=== PATIENT | male | born 1970 | race Caucasian/White ===

== ENCOUNTER 2022-05-27 18:53 | Observation (INO) | payer OTHER, SELFPAY ==
[2022-05-27] VITALS (11 sets, daily range): BP systolic 163–190; BP diastolic 93–125; PULSE 68–85; RESP 11–22; TEMP 37.3; O2SAT 96–99
--- NOTE | ~2022-05-27 | US_ITS ---
US right upper quadrant DATE: 05/29/2022 13:58 INDICATION: Elevated liver function tests TECHNIQUE: Real-time imaging and Doppler analysis of the right upper quadrant COMPARISON: None FINDINGS: The pancreas is partially obscured by bowel gas. No hepatic space-occupying mass lesion is detected. Normal hepatopedal portal venous flow direction. No gallstones or pericholecystic fluid are detected. The gallbladder is not very distended which may account for mild prominence of the wall which measures approximately 2.7 mm maximal dimension. Negati ve sonographic Weaver's sign. The common bile duct measures 4 mm, within normal range. IMPRESSION: Limited distention of the gallbladder, no visualized gallstones, gallbladder wall upper l imits normal; negative sonographic Weaver's sign. The pancreas is not well demonstrated Reviewed, dictated and finalized at [facility] Reviewed, dictated and finalized at [facility] [employer] HANDL[employer] HELPER IMPRESSION: Limited distention of the gallbladder, no visualized gallstones, ga llbladder wall upper limits normal; negative sonographic Weaver's sign. The pancreas is not well demonstrated
--- NOTE | ~2022-05-27 | XR_ITS ---
EXAMINATION: XR chest 1V portable DATE: 05/27/2022 22:05 INDICATION: Shortness of breath. TECHNIQUE: A single frontal view of the chest was obtained. COMPARISON: None. FINDINGS: The chest demonstrates clear lungs without pneumonia, pleural effusion, or pneumothorax. Th e heart size is normal. IMPRESSION: 1. No acute cardiopulmonary disease. Reviewed, dictated and finalized at [facility]
--- NOTE | 2022-05-27 21:45 | ECG_ITS ---
Measurements Intervals [place] Rate: 67 P: 59 ND: 155 QRS: -9 QRSD: 97 T: 43 QT: 404 QTc: 429 Interpretive Statements SINUS RHYTHM NORMAL ECG NO PREVIOUS ECG AVAILABLE FOR COMPARISON Electronically Signed On 05-28-2022 6:47:10 GEOMETRY TEACHER by Pk Armas D.O.
--- NOTE | 2022-05-27 21:47 | ED.ALCOHOL ---
HPI - Alcohol General Chief Complaint: Alcohol <Karlie Rodriguez MD - Last Filed: 05/27/22 22:42> Stated Complaint: alcohol withdrawal <Karlie Rodriguez MD - Last Filed: 05/27/22 22:42> Time Seen by Provider: 05/27/22 21:38 <Karlie Rodriguez MD - Last Filed: 05/27/22 22:42> Source: patient and RN notes reviewed <Karlie Rodriguez MD - Last Filed: 05/27/22 22:42> Mode of arrival: wheelchair <Karlie Rodriguez MD - Last Filed: 05/27/22 22:42> Limitations: no limitations <Karlie Rodriguez MD - Last Filed: 05/27/22 22:42> History of Present Illness HPI narrative: This is a 51 year old male with history of alcohol abuse who presents for evaluation of alcohol withdrawal. Patient states he has not had any alcohol in 24 hours. He has been having weakness, nausea and vomiting since yesterday. He denies associated abdominal pain or diarrhea. He reports temperature of 99 F today. He also states today he is having shortness of breath when he is sleeping. He states when he falls asleep, he will wake up gasping for air. He denies chest pain. He almost fell today and he states he fell yestserday because he felt like his legs gave out. He went to alcohol rehab 2 months ago and he immediately went back to drinking 2 months ago as well. <Karlie Rodriguez MD - Last Filed: 05/27/22 22:42> Related Data Allergies/Adverse Reactions: Allergies Allergy/AdvReac Type Severity Reaction Status Date / Time No Known Allergies Allergy Verified 05/27/22 22:25 <Karlie Rodriguez MD - Last Filed: 05/27/22 22:42> Review of Systems Review of Systems: All systems reviewed & are unremarkable except as noted in HPI and below <Karlie Rodriguez MD - Last Filed: 05/27/22 22:42> Constitutional: Constitutional: Denies chills, Reports fatigue, Reports fever(s) and Reports weakness <Karlie Rodriguez MD - Last Filed: 05/27/22 22:42> ENT: Denies nasal congestion and Denies sore throat <Karlie Rodriguez MD - Last Filed: 05/27/22 22:42> Cardiovascular: Cardiovascular: Denies chest pain and Denies radiating jaw, neck or arm pain <Karlie Rodriguez MD - Last Filed: 05/27/22 22:42> Respiratory: Respiratory: Reports cough, Reports dyspnea and Denies wheezing <Karlie Rodriguez MD - Last Filed: 05/27/22 22:42> Gastrointestinal: Gastrointestinal: Denies abdominal pain, Denies diarrhea, Reports nausea and Reports vomiting <Karlie Rodriguez MD - Last Filed: 05/27/22 22:42> Neurologic: Reports headache(s) <Karlie Rodriguez MD - Last Filed: 05/27/22 22:42> Psychiatric: Psychiatric: Reports anxiety <Karlie Rodriguez MD - Last Filed: 05/27/22 22:42> PMFSH Past Medical History Medical History: Medical History (Updated 05/27/22 @ 22:42 by Karlie Rodriguez MD) Alcohol abuse Alcohol withdrawal <Karlie Rodriguez MD - Last Filed: 05/27/22 22:42> Surgical History Surgical History: Surgical History (Updated 05/27/22 @ 21:52 by Karlie Rodriguez MD) No pertinent past surgical history <Karlie Rodriguez MD - Last Filed: 05/27/22 22:42> Social History Social History: Social History (Updated 05/27/22 @ 21:52 by Karlie Rodriguez MD) Alcohol intake: current <Karlie Rodriguez MD - Last Filed: 05/27/22 22:42> Exam Const: General: no acute distress and alert <Karlie Rodriguez MD - Last Filed: 05/27/22 22:42> Orientation/consciousness: patient oriented x3 <Karlie Rodriguez MD - Last Filed: 05/27/22 22:42> HENMT: Head: normal to inspection <Karlie Rodriguez MD - Last Filed: 05/27/22 22:42> Ears: external ears normal <Karlie Rodriguez MD - Last Filed: 05/27/22 22:42> Mouth: Yes Normal oral and palatal mucosa present <Karlie Rodriguez MD - Last Filed: 05/27/22 22:42> Eyes: EOM: EOMs intact bilaterally <Karlie Rodriguez MD - Last Filed: 05/27/22 22:42> Neck: Neck: normal visual inspection <Karlie Rodriguez MD - Last Filed: 05/27/22 22:42> Chest: Chest p
[2022-05-27 22:10] LABS: Appearance Urine Clear (Clear); Bilirubin Urine Negative (Negative); Blood Urine Negative (Negative); Color Urine Yellow (Yellow); Glucose Urine UA Negative (Negative); Ketones Urine Negative (Negative); Leukocyte Esterase Ur Negative LEU/UL (Negative); Nitrate Urine Negative (Negative); Protein Urine Negative (Negative); Specific Grav Ur 1.015 (1.001-1.035); Urobilinogen Urine 0.2 mg/dL (<2.0); pH Urine 7.5 (5.0-9.0)
[2022-05-27 22:14] LABS: Add Urine Microscopic? NO; Mucus Urine Rare /lpf; RBC Urine 0-2 /hpf (0-2); WBC Urine 0-3 /hpf
[2022-05-27] MEDS: SODIUM CHLORIDE 0.9% IV 1,000 ML 999 ML IV CONT (22:26)
[2022-05-27] MEDS: LORazepam INJ (*CRX) 2 MG/ML VIAL IV PUSH ×2 (22:27→23:18)
[2022-05-27 22:38] LABS: Eosinophils Absolute Auto 0.1 K/mm3 (0-0.3); Eosinophils Percent Auto 1.9 % (0-4.4); Hematocrit 38.8 % (42.0-52.0); Immature Granulocyte Absolute 0.01 K/mm3 (0.00-0.031); Immature Granulocyte Percent A 0.2 % (0-0.5); Lymphocytes Percent Auto 28.6 % (18.3-44.2); Mean Corpuscular HGB Conc 33.5 g/dl (32-36); Mean Corpuscular Hemoglobin 33.7 pg (26-34); Mean Corpuscular Volume 100.5 fl (80-100); Mean Platelet Volume 10.5 fl (7.4-10.4); Monocytes Absolute Auto 0.2 K/mm3 (0.1-0.6); Monocytes Percent Auto 5.7 % (2.6-8.5); Neutrophils Absolute Auto 2.6 K/mm3 (1.3-6.7); Neutrophils Percent Auto 62.6 % (45.5-73.1); Platelet Count Result 91 k/mm3 (150-375); Red Blood Count 3.86 M/mm3 (4.6-6.20); Red Cell Distribution Width 12.6 % (11.5-14.5); White Blood Count 4.2 K/mm3 (4.5-10.0)
[2022-05-27 22:44] LABS: Amphetamine Screen Urine Negative (Negative); Barbiturate Screen Urine Negative (Negative); Benzodiazepines Screen Urine Positive (Negative); Cannabinoid Screen Urine Negative (Negative); Cocaine Screen Urine Negative (Negative); Methadone Screen Urine Negative (Negative); Opiate Screen Urine Negative (Negative); Phencyclidine Screen Urine Negative (Negative)
[2022-05-27 22:46] LABS: Prothrombin Time 12.9 Seconds (11.1-14.7)
[2022-05-27 22:47] LABS: Creatine Kinase 153 U/L (55-170); Lipase 61 U/L (23-300); Magnesium 1.6 mg/dL (1.6-2.3); Partial Thromboplastin Time 30.8 SECONDS (22.3-36.8); SARS-CoV-2 RNA PCR Negative
[2022-05-27 22:49] LABS: Alanine Aminotransferase 77 U/L (6-50); Albumin Level 4.8 g/dL (3.5-5.1); Alkaline Phosphatase 70 U/L (38-126); Anion Gap 12 mmol/L (8-16); Aspartate Amino Transferase 69 U/L (17-59); Bilirubin,Total 0.9 mg/dL (0.2-1.3); Blood Urea Nitrogen 11 mg/dL (9-20); Calcium 9.5 mg/dL (8.4-10.2); Carbon Dioxide 31 mmol/L (22-30); Chloride 95 mmol/L (98-107); Estimated CRCL calculation 116 ml/min; Estimated Glomerular Filt Rate > 60; Ethanol < 10 mg/dL (<10); Glucose 93 mg/dL (65-110); Lactic Acid Reflex 0.9 mmol/L (0.7-2.0); Potassium 3.5 mmol/L (3.4-5.0); Sodium 138 mmol/L (137-145)
--- NOTE | 2022-05-27 23:25 | PC.NURSE ---
Patient report given to CAROL Mccoy. All questions answered and care of patient transferred.
[2022-05-28] VITALS (31 sets, daily range): BP systolic 134–180; BP diastolic 81–117; PULSE 72–91; RESP 12–24; TEMP 36.9–37.4; O2SAT 93–99; BMI 24.5
[2022-05-28] MEDS: THIAMINE HCL 200 MG/2 ML VIAL 100 MG IV PUSH (01:18)
[2022-05-28] MEDS: ONDANSETRON INJ 4 MG/2 ML VIAL IV PUSH (01:18)
[2022-05-28] MEDS: SODIUM CHLORIDE 0.9% IV 1,000 ML 999 ML IV CONT (01:18)
[2022-05-28] MEDS: chlordiazePOXIDE (*CRX) 25 MG CAPSULE 50 MG PO ×5 (01:52→23:15)
--- NOTE | 2022-05-28 03:30 | ADMGEN ---
This patient, Matthew Hillman, was admitted to [facility] Surg Room 331-01. Patient/family oriented to hospital policies and general routines including ID bracelet, bed and alarms, visiting hours, pain management, procedures, bathroom and other care routines, personal items, smoking policy, room service/diet, and visiting hours. Information on how to activate the Rapid Response Team has been discussed. Patient/Family are encouraged to report perceived risks to care and to ask questions if they do not understand what they are told or what they should do.
--- NOTE | 2022-05-28 05:26 | PM.IMHP ---
H&P: HPI History of Present Illness Date/Time: 05/28/22 05:26 Chief Complaint: Alcohol withdrawal Narrative: 51-year-old male with past medical history of chronic alcohol abuse who presented to the ER with symptoms of alcohol withdrawal. The patient drinks at least a 5th of vodka daily in addition to several beers a day. His last drink was at 15:00 on the . His CIWA score in the ER was 9. He has been having generalized weakness, nausea and vomiting since the . He almost fell yesterday due to his legs being weak. He was last in alcohol rehab center 2 months ago in as soon as he got out of rehab he immediately went back to drinking. He evidently was seeking help for his alcohol withdrawal and was prescribed a script for Librium 25 mg q.i.d. and Zofran p.r.n. as outpatient. He was supposed to go to an alcohol rehab center on the morning of the . In the ER he received 2 doses of Ativan with improvement in his symptoms. He has had history of prior alcohol withdrawal seizures approximately 2 years ago. about half an hour prior to my arrival to the room the patient CIWA score was Seventeen. He received 2 mg of Ativan and is now sleeping soundly and is difficult to arouse. He has no evidence of tremors diaphoresis or evidence of withdrawal at this moment. He had a temperature of 99? on arrival to the ER. He he denies any cough or congestion. He has been having some shortness of breath when he is laying down. his COVID swab was negative in the ER. His chest x-ray was normal. Review of Systems Review of Systems: Unattainable due to sedation. [facility] Past Medical History Medical History (Updated 05/28/22 @ 06:07 by Amee Cueto DO) Alcohol abuse Alcohol withdrawal Surgical History Surgical History (Updated 05/27/22 @ 21:52 by Karlie Rodriguez MD) No pertinent past surgical history Family History Family History (Updated 05/28/22 @ 06:32 by Amee Cueto DO) Other Unknown family medical history Social History Social History (Updated 05/28/22 @ 06:31 by Amee Cueto DO) Social History: The patient drinks up to a 5th of alcohol a day plus several cans of beer a day. It is unknown if the patient is ever smoked. It is unknown if he uses drugs. Smoking status: Unknown if ever smoked Tobacco type: cigarettes Additional smoking assessment comments: mother states pt has smoked since he was a teenager Alcohol intake: current Drinks per week: 30 Substance use: current Spiritual care concerns: No Meds Home Medications and Allergies Home Medications Medication Instructions Recorded Confirmed Type chlordiazepoxide HCl 25 mg capsule 25 mg PO QID 05/28/22 05/28/22 History ondansetron HCl 4 mg tablet 4 mg PO BID 05/28/22 05/28/22 History Allergies Allergy/AdvReac Type Severity Reaction Status Date / Time No Known Allergies Allergy Verified 05/27/22 22:25 Vital Signs Vital Signs - 24 hr 05/27/22 19:26 05/27/22 22:59 05/27/22 23:00 Temperature 99.1 F Pulse Rate 70 73 68 Respiratory Rate 18 11 L 19 Blood Pressure 163/93 H 171/97 H Pulse Oximetry 99 Oxygen Delivery Room Air 05/27/22 23:12 05/27/22 23:15 05/27/22 23:17 Temperature Pulse Rate 76 81 73 Respiratory Rate 16 14 11 L Blood Pressure 190/115 H 183/125 H Pulse Oximetry 97 97 97 Oxygen Delivery 05/27/22 23:18 05/27/22 23:38 05/27/22 23:45 Temperature Pulse Rate 77 85 69 Respiratory Rate 15 22 H 20 Blood Pressure Pulse Oximetry 96 98 Oxygen Delivery 05/27/22 23:46 05/27/22 23:47 05/28/22 00:00 Temperature Pulse Rate 74 74 78 Respiratory Rate 19 17 19 Blood Pressure 176/107 H Pulse Oximetry 98 97 Oxygen Delivery 05/28/22 00:01 05/28/22 00:15 05/28/22 00:16 Temperature Pulse Rate 80 73 85 Respiratory Rate 15 12 24 H Blood Pressure 152/94 H 160/94 H Pulse Oximetry Oxygen Delivery 05/28/22 00:17 05/28/22 00:30
[2022-05-28] MEDS: LORazepam INJ (*CRX) 2 MG/ML VIAL IV PUSH (05:56)
[2022-05-28] MEDS: THIAMINE HCL 100 MG TABLET PO (08:13)
[2022-05-28] MEDS: FOLIC ACID 1 MG TABLET PO (08:13)
[2022-05-28 08:40] LABS: Hematocrit 38.9 % (42.0-52.0); Hemoglobin 13.2 g/dL (14.0-18.0); Immature Platelet Fraction Pct 8.2 % (0.9-11.2); Mean Corpuscular HGB Conc 33.9 g/dl (32-36); Mean Corpuscular Hemoglobin 33.8 pg (26-34); Mean Corpuscular Volume 99.5 fl (80-100); Mean Platelet Volume 10.4 fl (7.4-10.4); Platelet Count Result 86 k/mm3 (150-375); Red Blood Count 3.91 M/mm3 (4.6-6.20); Red Cell Distribution Width 12.2 % (11.5-14.5)
[2022-05-28 08:47] LABS: Alanine Aminotransferase 71 U/L (6-50); Albumin Level 4.7 g/dL (3.5-5.1); Alkaline Phosphatase 71 U/L (38-126); Anion Gap 11 mmol/L (8-16); Aspartate Amino Transferase 61 U/L (17-59); Bilirubin,Total 1.2 mg/dL (0.2-1.3); Blood Urea Nitrogen 10 mg/dL (9-20); Carbon Dioxide 27 mmol/L (22-30); Chloride 98 mmol/L (98-107); Estimated CRCL calculation 131 ml/min; Estimated Glomerular Filt Rate > 60; Glucose 101 mg/dL (65-110); Magnesium 1.5 mg/dL (1.6-2.3); Phosphorus 3.9 mg/dL (2.5-4.5); Potassium 3.7 mmol/L (3.4-5.0); Sodium 136 mmol/L (137-145)
[2022-05-28 10:26] LABS: Folic Acid 16.1 ng/mL (2.76->20)
--- NOTE | 2022-05-28 11:54 | PM.IMPN ---
Progress Note: A&P Assessment and Plan (1) Alcohol withdrawal syndrome: Code(s): F10.939 - Alcohol use, unspecified with withdrawal, unspecified Status: Acute Assessment and Plan: patient has been admitted to medical floor. Thiamine and folate have been started. He has been started on scheduled Librium. Lorazepam IV is available as needed for signs or symptoms of worsening withdrawal. B12 folate level normal. The patient already has a bed available and alcohol rehab center on Monday morning. Hopefully will get the patient medically stabilized so that he can go to the appointment for rehab placement. Okay to stop tele. (2) Pancytopenia: Code(s): D61.818 - Other pancytopenia Status: Acute Assessment and Plan: White count normal now. Platelet count has dropped to 86 K probably related to the toxic effects of alcohol. No clinical evidence of cirrhosis and no splenomegaly on exam. hemoglobin is only mildly decreased and stable. Follow. (3) Elevated liver transaminase level: Code(s): R74.01 - Elevation of levels of liver transaminase levels Status: Acute Assessment and Plan: AST and ALT mildly elevated on admission. Likely due to chronic alcoholic hepatitis. Repeat levels trending downward. (4) Alcohol abuse: Code(s): F10.10 - Alcohol abuse, uncomplicated Status: Acute Assessment and Plan: patient was educated about the benefits of stain from alcohol use. He lives at home with his 9-year-old son who is currently staying with grandparents. Subjective Date/time seen: 05/28/22 11:54 Interval history: 51yo male with hx of alcoholism here for nausea and found to have alcohol withdrawal. Patient slept poorly. No chest pain. Shortness of breath has resolved. No nausea or vomiting. No tremors. He feels very weak. He has a history of seizures in the past related to alcohol withdrawal. Exam Narrative: AF 99.4 172/88 76 18 95% ra Gen - NARD lying semi-recumbent in bed Chest - CTA bilaterally, nml RR CV - RRR S1/S2. Tele showing no significant dysrhythmias Abd - Soft, NT/ND, Positive BS. No hepatosplenomegaly Ext - No pedal edema Psych - alert, slow to respond, weak and needs assistance sittinig up in bed. Skin - Warm and dry. no diaphroesis Objective Data Vital Signs Vital Signs: Vital Signs - 24 hr 05/27/22 19:26 05/27/22 22:59 05/27/22 23:00 Temperature 99.1 F Pulse Rate 70 73 68 Respiratory Rate 18 11 L 19 Blood Pressure 163/93 H 171/97 H Pulse Oximetry 99 Oxygen Delivery Room Air 05/27/22 23:12 05/27/22 23:15 05/27/22 23:17 Temperature Pulse Rate 76 81 73 Respiratory Rate 16 14 11 L Blood Pressure 190/115 H 183/125 H Pulse Oximetry 97 97 97 Oxygen Delivery 05/27/22 23:18 05/27/22 23:38 05/27/22 23:45 Temperature Pulse Rate 77 85 69 Respiratory Rate 15 22 H 20 Blood Pressure Pulse Oximetry 96 98 Oxygen Delivery 05/27/22 23:46 05/27/22 23:47 05/28/22 00:00 Temperature Pulse Rate 74 74 78 Respiratory Rate 19 17 19 Blood Pressure 176/107 H Pulse Oximetry 98 97 Oxygen Delivery 05/28/22 00:01 05/28/22 00:15 05/28/22 00:16 Temperature Pulse Rate 80 73 85 Respiratory Rate 15 12 24 H Blood Pressure 152/94 H 160/94 H Pulse Oximetry Oxygen Delivery 05/28/22 00:17 05/28/22 00:30 05/28/22 00:31 Temperature Pulse Rate 91 76 82 Respiratory Rate 21 H 23 H 16 Blood Pressure 172/98 H Pulse Oximetry 99 96 Oxygen Delivery 05/28/22 00:45 05/28/22 01:00 05/28/22 01:15 Temperature Pulse Rate 76 76 90 Respiratory Rate 14 17 19 Blood Pressure Pulse Oximetry 96 97 95 Oxygen Delivery 05/28/22 01:16 05/28/22 01:17 05/28/22 01:30 Temperature Pulse Rate 89 84 86 Respiratory Rate 19 14 17 Blood Pressure 176/98 H Pulse Oximetry 96 Oxygen Delivery 05/28/22 01:32 05/28/22 01:45 05/28/22 01:46 Temperature
[2022-05-28] MEDS: MAGNESIUM OXIDE 400 MG TABLET PO (12:33)
[2022-05-28] MEDS: LORazepam INJ (*CRX) 2 MG/ML VIAL 1 MG IV PUSH ×3 (12:41→23:15)
[2022-05-28] MEDS: hydrALAZINE HCL 20 MG/ML VIAL 10 MG IV PUSH (16:37)
[2022-05-29 04:50] VITALS: BP 150/103; PULSE 91; RESP 18; TEMP 36.8; O2SAT 99
[2022-05-29] MEDS: chlordiazePOXIDE (*CRX) 25 MG CAPSULE 50 MG PO ×4 (05:59→23:42)
[2022-05-29 06:56] LABS: Hematocrit 44.3 % (42.0-52.0); Hemoglobin 14.9 g/dL (14.0-18.0); Immature Platelet Fraction Pct 10.1 % (0.9-11.2); Mean Corpuscular HGB Conc 33.6 g/dl (32-36); Mean Corpuscular Hemoglobin 33.3 pg (26-34); Mean Corpuscular Volume 99.1 fl (80-100); Mean Platelet Volume 10.8 fl (7.4-10.4); Platelet Count Result 91 k/mm3 (150-375); Red Blood Count 4.47 M/mm3 (4.6-6.20); Red Cell Distribution Width 12.3 % (11.5-14.5); White Blood Count 4.6 K/mm3 (4.5-10.0)
[2022-05-29 07:03] LABS: Alanine Aminotransferase 213 U/L (6-50); Albumin Level 4.7 g/dL (3.5-5.1); Alkaline Phosphatase 71 U/L (38-126); Anion Gap 8 mmol/L (8-16); Aspartate Amino Transferase 216 U/L (17-59); Bilirubin,Total 1.1 mg/dL (0.2-1.3); Blood Urea Nitrogen 12 mg/dL (9-20); Calcium 9.7 mg/dL (8.4-10.2); Carbon Dioxide 28 mmol/L (22-30); Chloride 98 mmol/L (98-107); Estimated CRCL calculation 131 ml/min; Estimated Glomerular Filt Rate > 60; Glucose 115 mg/dL (65-110); Magnesium 1.9 mg/dL (1.6-2.3); Potassium 3.7 mmol/L (3.4-5.0); Sodium 134 mmol/L (137-145)
[2022-05-29] MEDS: THIAMINE HCL 100 MG TABLET PO (08:52)
[2022-05-29] MEDS: FOLIC ACID 1 MG TABLET PO (08:53)
[2022-05-29] MEDS: MAGNESIUM OXIDE 400 MG TABLET PO (08:53)
[2022-05-29] MEDS: LORazepam INJ (*CRX) 2 MG/ML VIAL 1 MG IV PUSH ×4 (11:37→23:42)
--- NOTE | 2022-05-29 11:39 | PM.IMPN ---
Progress Note: A&P Assessment and Plan (1) Alcohol withdrawal syndrome: Code(s): F10.939 - Alcohol use, unspecified with withdrawal, unspecified Status: Acute Assessment and Plan: Patient has been admitted to medical floor. CIWA score trending down (was 1 this morning). Continue thiamine and folate. Continue scheduled Librium. Lorazepam IV is available as needed for signs or symptoms of worsening withdrawal. B12 folate level normal. The patient already has a bed available at an alcohol rehab center but not able to go today. Start PT/OT. SCDs since unable to get out of bed. (2) Pancytopenia: Code(s): D61.818 - Other pancytopenia Status: Acute Assessment and Plan: White count remaining normal. Platelet count dropped to 86 K probably related to the toxic effects of alcohol. No clinical evidence of cirrhosis and no splenomegaly on exam. Plt count improved to 91K. Hemoglobin normal now as well. Follow. (3) Elevated liver transaminase level: Code(s): R74.01 - Elevation of levels of liver transaminase levels Status: Acute Assessment and Plan: AST and ALT mildly elevated on admission but now up to 216 and 213 respectfully. [place] likely due to chronic alcoholic hepatitis. Will check RUQ. (4) Alcohol abuse: Code(s): F10.10 - Alcohol abuse, uncomplicated Status: Acute Assessment and Plan: Patient was educated about the benefits of abstaining from alcohol use. He lives at home with his 9-year-old son who is currently staying with grandparents. Subjective Date/time seen: 05/29/22 11:39 Interval history: 51yo male with hx of alcoholism here for nausea and found to have alcohol withdrawal. Patient slept okay. No CP or SOB but feels SOB right before he falls asleep. He feels his tremors are worse. He cant stand due to tremors. He is not wanting to go to rehab. Exam Narrative: AF 98.2 150/103 91 18 99% ra Gen - NARD lying flat in bed Chest - clear anteriorly and in flanks CV - RRR S1/S2 Abd - Soft, NT, +BS Ext - No pedal edema Psych - alert, mildly garbled speech, more animated. Skin - Warm and dry. not diaphoretic Objective Data Vital Signs Vital Signs: Vital Signs - 24 hr 05/28/22 13:45 11/12/22 13:50 05/28/22 14:10 Temperature 99.4 F Pulse Rate 78 Respiratory Rate 16 Blood Pressure 170/117 H 163/108 H 166/106 H Pulse Oximetry 99 Oxygen Delivery 05/28/22 17:43 05/28/22 20:30 05/28/22 20:00 Temperature 98.4 F Pulse Rate 76 Respiratory Rate 18 Blood Pressure 180/98 H 165/82 H Pulse Oximetry 97 Oxygen Delivery Room Air 05/29/22 04:50 05/29/22 08:50 Temperature 98.2 F Pulse Rate 91 Respiratory Rate 18 Blood Pressure 150/103 H Pulse Oximetry 99 Oxygen Delivery Room Air Intake/Output Intake/Output: Intake & Output 05/26/22 05/27/22 05/28/22 05/29/22 23:59 23:59 23:59 23:59 Intake Total 1000 1010 240 Output Total 2700 1150 Balance 1000 -1690 -910 Meds/Results Medications: Active Medications Generic Name Dose Route Start Last Admin Trade Name Freq PRN Reason Stop Dose Admin Chlordiazepoxide HCl 50 mg 05/28/22 06:00 05/29/22 11:18 Chlordiazepoxide (*Crx) 25 Mg Capsule PO 50 mg Q6HR ISAIAS Administration Folic Acid 1 mg 05/28/22 09:00 05/29/22 08:53 Folic Acid 1 Mg Tablet PO 1 mg DAILY ISAIAS Administration Hydralazine HCl 10 mg 05/28/22 16:07 05/28/22 16:37 Hydralazine Hcl 20 Mg/Ml Vial IV PUSH 10 mg Q8H PRN Administration Blood Pressure - High Lorazepam 1 mg 05/28/22 06:31 05/28/22 23:15 Lorazepam Inj (*Crx) 2 Mg/Ml Vial IV PUSH 1 mg Q2H PRN Administration CIWA score Greater than 8 Magnesium Oxide 400 mg 05/28/22 12:05 05/29/22 08:53 Magnesium Oxide 400 Mg Tablet PO 400 mg DAILY ISAIAS Administration Ondansetron HCl 4 mg 05/28/22 00:46 05/28/22 01:18 Ondansetron Inj 4 Mg/2 Ml Vial IV PUSH 4 mg
[2022-05-29 14:00] VITALS: BP 127/102; PULSE 88; RESP 16; TEMP 36.7; O2SAT 99
[2022-05-29 21:53] VITALS: BP 127/83; PULSE 101; RESP 20; TEMP 36.6; O2SAT 100
[2022-05-30] MEDS: chlordiazePOXIDE (*CRX) 25 MG CAPSULE 50 MG PO ×2 (05:21→12:09)
[2022-05-30 05:44] VITALS: BP 139/97; PULSE 63; RESP 20; TEMP 36.4; O2SAT 100
[2022-05-30 06:23] LABS: Basophils Percent Auto 0.8 % (0.2-1.2); Eosinophils Absolute Auto 0.2 K/mm3 (0-0.3); Hemoglobin 14.1 g/dL (14.0-18.0); Immature Granulocyte Absolute 0.01 K/mm3 (0.00-0.031); Immature Granulocyte Percent A 0.2 % (0-0.5); Immature Platelet Fraction Pct 10.8 % (0.9-11.2); Lymphocytes Absolute Auto 1.57 K/mm3 (0.9-3.2); Lymphocytes Percent Auto 32.7 % (18.3-44.2); Mean Corpuscular HGB Conc 33.6 g/dl (32-36); Mean Corpuscular Hemoglobin 33.6 pg (26-34); Monocytes Absolute Auto 0.4 K/mm3 (0.1-0.6); Neutrophils Absolute Auto 2.5 K/mm3 (1.3-6.7); Neutrophils Percent Auto 52.3 % (45.5-73.1); Platelet Count Result 104 k/mm3 (150-375); Red Cell Distribution Width 12.3 % (11.5-14.5); White Blood Count 4.8 K/mm3 (4.5-10.0)
[2022-05-30 06:39] LABS: Alanine Aminotransferase 201 U/L (6-50); Albumin Level 4.5 g/dL (3.5-5.1); Alkaline Phosphatase 66 U/L (38-126); Anion Gap 10 mmol/L (8-16); Aspartate Amino Transferase 138 U/L (17-59); Bilirubin,Total 0.8 mg/dL (0.2-1.3); Blood Urea Nitrogen 14 mg/dL (9-20); Calcium 9.4 mg/dL (8.4-10.2); Carbon Dioxide 27 mmol/L (22-30); Chloride 100 mmol/L (98-107); Estimated CRCL calculation 116 ml/min; Estimated Glomerular Filt Rate > 60; Glucose 110 mg/dL (65-110); Potassium 3.8 mmol/L (3.4-5.0); Sodium 137 mmol/L (137-145)
[2022-05-30] MEDS: MAGNESIUM OXIDE 400 MG TABLET PO (08:23)
[2022-05-30] MEDS: THIAMINE HCL 100 MG TABLET PO (08:23)
[2022-05-30] MEDS: FOLIC ACID 1 MG TABLET PO (08:23)
--- NOTE | 2022-05-30 12:40 | PM.IMPN ---
Progress Note: A&P Assessment and Plan (1) Alcohol withdrawal syndrome: Code(s): F10.939 - Alcohol use, unspecified with withdrawal, unspecified Status: Acute Assessment and Plan: Patient has been admitted to medical floor. CIWA score trending down overall. Continue thiamine and folate. B12 and folate level normal. The patient already has a bed available at an alcohol rehab center but not able to go yesterday. Walking better. Continue PT/OT. SCDs since unable to get out of bed. Continue scheduled Librium but decrease dose. Lorazepam IV is available as needed for signs or symptoms of worsening withdrawal. (2) Pancytopenia: Code(s): D61.818 - Other pancytopenia Status: Acute Assessment and Plan: White count remaining normal. Platelet count dropped to 86 K probably related to the toxic effects of alcohol. No clinical evidence of cirrhosis and no splenomegaly on exam. Plt count improved to 104K. Hemoglobin normal now as well. Follow. (3) Elevated liver transaminase level: Code(s): R74.01 - Elevation of levels of liver transaminase levels Status: Acute Assessment and Plan: AST and ALT mildly elevated on admission but climbed to 216 and 213 respectfully. [place] likely due to chronic alcoholic hepatitis. RUQ okay. Add Hepatitis panel. Levels trending down (4) Alcohol abuse: Code(s): F10.10 - Alcohol abuse, uncomplicated Status: Acute Assessment and Plan: Patient was educated about the benefits of abstaining from alcohol use. He lives at home with his 9-year-old son who is currently staying with grandparents. Subjective Date/time seen: 05/30/22 12:40 Interval history: 51yo male with hx of alcoholism here for nausea and found to have alcohol withdrawal. Slept okay. No tremors. Up to the chair. Walked in halls. Exam Narrative: AF 97.5 139/97 63 20 100% ra Gen - NARD Chest - CTA bilateral CV - RRR S1/S2 Abd - Soft, NT, +BS Ext - No pedal edema Psych - somnolent but becomes alert easily. Skin - Warm and dry. not diaphoretic Objective Data Vital Signs Vital Signs: Vital Signs - 24 hr 05/29/22 14:00 05/29/22 21:53 05/29/22 20:00 Temperature 98.1 F 97.8 F Pulse Rate 88 101 H Respiratory Rate 16 20 Blood Pressure 127/102 H 127/83 Pulse Oximetry 99 100 Oxygen Delivery Room Air 05/30/22 05:44 05/30/22 08:00 05/30/22 10:25 Temperature 97.5 F L Pulse Rate 63 Respiratory Rate 20 Blood Pressure 139/97 H Pulse Oximetry 100 Oxygen Delivery Room Air Room Air Intake/Output Intake/Output: Intake & Output 05/27/22 05/28/22 05/29/22 05/30/22 23:59 23:59 23:59 23:59 Intake Total 1000 1010 1500 1500 Output Total 2700 2050 575 Balance 1000 -1690 -550 925 Meds/Results Medications: Active Medications Generic Name Dose Route Start Last Admin Trade Name Freq PRN Reason Stop Dose Admin Chlordiazepoxide HCl 50 mg 05/28/22 06:00 05/30/22 12:09 Chlordiazepoxide (*Crx) 25 Mg Capsule PO 50 mg Q6HR ISAIAS Administration Folic Acid 1 mg 05/28/22 09:00 05/30/22 08:23 Folic Acid 1 Mg Tablet PO 1 mg DAILY ISAIAS Administration Hydralazine HCl 10 mg 05/28/22 16:07 05/28/22 16:37 Hydralazine Hcl 20 Mg/Ml Vial IV PUSH 10 mg Q8H PRN Administration Blood Pressure - High Lorazepam 1 mg 05/28/22 06:31 05/29/22 23:42 Lorazepam Inj (*Crx) 2 Mg/Ml Vial IV PUSH 1 mg Q2H PRN Administration CIWA score Greater than 8 Magnesium Oxide 400 mg 05/28/22 12:05 05/30/22 08:23 Magnesium Oxide 400 Mg Tablet PO 400 mg DAILY ISAIAS Administration Ondansetron HCl 4 mg 05/28/22 00:46 05/28/22 01:18 Ondansetron Inj 4 Mg/2 Ml Vial IV PUSH 4 mg Q4H PRN Administration Nausea Thiamine HCl 100 mg 05/28/22 09:00 05/30/22 08:23 Thiamine Hcl 100 Mg Tablet PO 100 mg QAM ISAIAS Administration Radiology Results: ITS Impressions Chest X-Ray 05/27/22
[2022-05-30 13:47] VITALS: BMI 24.5
[2022-05-30 14:20] LABS: Hepatitis B Surface Antigen Negative (Negative)
[2022-05-30 14:26] LABS: HAV RESULT Negative (Negative); Hepatitis B Core IgM Result Negative (Negative)
[2022-05-30 14:30] VITALS: BP 117/74; PULSE 63; RESP 12; TEMP 36.9; O2SAT 99
[2022-05-30 14:38] LABS: Hepatitis C Virus Antibody Negative (Negative)
[2022-05-30] MEDS: chlordiazePOXIDE (*CRX) 25 MG CAPSULE PO (18:01)
[2022-05-30 20:00] VITALS: BP 116/79
[2022-05-30 22:00] VITALS: BP 116/79; PULSE 75; RESP 18; TEMP 36.6; O2SAT 99
[2022-05-31] MEDS: chlordiazePOXIDE (*CRX) 25 MG CAPSULE PO ×2 (01:48→09:35)
[2022-05-31] MEDS: NICOTINE (*PBKC) 21 MG PATCH 1 PATCH TRANSDERM (01:48)
--- NOTE | 2022-05-31 03:44 | PC.NURSE ---
Pt has been restless off and on this evening. Pt has since calmed down. Pt requesting to go smoke. Pt was educated on hospital policy. Notified physician and pt was given a nicotine patch. Pt is sleeping. Pt participated and contributed in plan of care. Will continue to monitor pt.
[2022-05-31 06:00] VITALS: BP 99/59; PULSE 68; RESP 20; TEMP 36.6; O2SAT 98
[2022-05-31 08:00] VITALS: BP 99/59; PULSE 68; RESP 20; O2SAT 98
[2022-05-31] MEDS: THIAMINE HCL 100 MG TABLET PO (09:35)
[2022-05-31] MEDS: MAGNESIUM OXIDE 400 MG TABLET PO (09:35)
[2022-05-31] MEDS: FOLIC ACID 1 MG TABLET PO (09:36)
[2022-05-31 12:00] VITALS: BP 99/59
--- NOTE | 2022-05-31 12:36 | PM.DS ---
DS: Admitting Diagnosis Discharge Date 05/31/22 Admitting Diagnosis Alcohol withdrawal DS: Discharge Diagnosis Discharge Diagnosis (1) Alcohol withdrawal syndrome: Code(s): F10.939 - Alcohol use, unspecified with withdrawal, unspecified Status: Acute (2) Pancytopenia: Code(s): D61.818 - Other pancytopenia Status: Acute (3) Elevated liver transaminase level: Code(s): R74.01 - Elevation of levels of liver transaminase levels Status: Acute (4) Alcohol abuse: Code(s): F10.10 - Alcohol abuse, uncomplicated Status: Acute (5) Tobacco abuse: Code(s): Z72.0 - Tobacco use Status: Acute DS: Summary Hospital Course Reason for hospitalization: 51yo male with hx of alcoholism here for nausea and found to have alcohol withdrawal. Please see H&P for details Hospital Course: Patient has been admitted to medical floor.? He was started on scheduled Librium and monitored using a CIWA protocol. CIWA score trended down overall. He was treated with thiamine and folate. B12 and folate level normal. The patient already had a bed available at an alcohol rehab center but not able to go due to weakness. PT/OT ordered and his weakness improved. White count was low initially but then normalized; WBC remaining normal.? Platelet count dropped to 86K probably related to the toxic effects of alcohol.? No clinical evidence of cirrhosis and no splenomegaly on exam. Plt count improved to 104K. Hemoglobin slightly low as well but this normalized. AST and ALT were mildly elevated on admission but climbed to 216 and 213 respectfully before trending down. RUQ okay. Viral hepatitis panel negative. [place] likely due to alcoholic hepatitis. Patient was educated about the benefits of abstaining from alcohol use.? He was also educated about the benefits of abstaining from tobacco use. Patient declined to go to an inpatient rehab and is requesting discharge. 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 He voiced understanding of not to drive or use heavy equipment or drink alcohol with the Librium. He overall did well and was able to be discharged home on 05/31/22 Status at Discharge Cognitive/behavioral status at discharge: stable Time Spent with Patient Time attestation: Total time spent providing and/or coordinating discharge services:35 minutes Time spent: Greater than 30 minutes Specific discharge activities: Patient education Exam Narrative: AF 97.9 99/59 68 20 98% ra Gen - NARD sitting up in chair working on his computer Chest - CTA bilaterally, nml RR CV - RRR S1/S2 Abd - Soft, NT, +BS Ext - No pedal edema Psych - nml mood and affect Skin - Warm and dry DS: Data Data Completed and Pending Labs on day of discharge: Labs from last 24 hours 05/30/22 06:05 Hepatitis A IgM Ab Negative Hep Bs Antigen Negative Hep B Core IgM Ab Negative Hepatitis C Ab Screen Negative Discharge Plan Discharge Attending physician on discharge: Jesus Manrique Consulting providers: Fady Randhawa Discharging Clinician: Jesus Manrique Anticipated Discharge Date/Time: 05/31/22 12:45 Patient Disposition: Home, Self-Care Activity: no driving Diet: regular Discharge Instructions: Abstain from all products that contain alcohol. Abstain from all products that contain tobacco. Take precautions to avoid falls. Rise slowly from a lying or sitting position. Pause before standing or walking. Contact your doctor or call 911 and come to the Emergency Room if you have tremors or other worrisome symptoms. Avoid NSAIDs (ibuprofen, naproxen, Aleve). Tylenol is safe to take. Follow-up with your primary care provider in 1-2 weeks. Please call for appointment. Would encourage you to attend an inpatient alcohol rehab center. Do not drive, drink alcohol or operate heavy machinery while taking Librium as we discussed.
== END 2022-05-31 13:29 | disposition home or self-care (01) ==
LOC: ANHED 23:41 → ANH3MEDSUR 05-28 02:47
PROVIDERS: Emergency Medicine; Admitting Provider Internal Medicine; Emergency Provider General Practice; Visit Provider Internal Medicine
DX: F10.139 Alcohol abuse with withdrawal, unspecified (principal); Y90.0 Blood alcohol level of less than 20 mg/100 ml; D61.818 Other pancytopenia; R53.1 Weakness; R11.2 Nausea with vomiting, unspecified; R74.01 Elevation of levels of liver transaminase levels; Z20.822 Contact with and (suspected) exposure to COVID-19; F17.210 Nicotine dependence, cigarettes, uncomplicated; R06.02 Shortness of breath; F13.20 Sedative, hypnotic or anxiolytic dependence, uncomplicated
CPT/HCPCS: 36415; 71045; 76705; 80053; 80074; 80307; 81003; 82550; 82607; 82746; 83605; 83690; 83735; 84100; 85025; 85027; 85055; 85610; 85730; 93005; 96361; 96374; 96375; 96376; 97110; 97161; 97166; 97530; 97535; 99285; A9270; G0378; J0360; J2060; J2405; J3411; J7030; U0003; U0005